=== PATIENT | male | born 1930 | race Caucasian/White ===

== ENCOUNTER → 2017-09-10 | Outpatient (CLI) | payer MEDICARE, OTHER | END | disposition home or self-care (01) | LOC: CFH 07:05 | PROVIDERS: ATTEND Nurse Practitioner Family | DX: M81.0 Age-related osteoporosis without current pathological fracture (principal); C61 Malignant neoplasm of prostate; Z79.818 Long term (current) use of other agents affecting estrogen receptors and estrogen levels | CPT/HCPCS: 77080 ==

== ENCOUNTER → 2018-01-20 | Outpatient (CLI) | payer MEDICARE, OTHER | END | disposition home or self-care (01) | LOC: CFH 06:54 | PROVIDERS: ATTEND Nurse Practitioner Family | DX: Z12.2 Encounter for screening for malignant neoplasm of respiratory organs (principal); J92.9 Pleural plaque without asbestos; I25.10 Atherosclerotic heart disease of native coronary artery without angina pectoris; Z87.891 Personal history of nicotine dependence | CPT/HCPCS: G0297 ==

== ENCOUNTER 2018-04-21 19:13 | Emergency (ER) | payer MEDICARE, OTHER ==
[~2018-04-21] VITALS: Ht 175.3 cm; Wt 77.5 kg
[2018-04-21 19:23] VITALS: BP 139/70
[2018-04-21] MEDS ORDERED: HIGH CHOL (19:30)
== END 2018-04-21 20:57 | disposition home or self-care (01) ==
LOC: ED 19:56
DX: M47.894 Other spondylosis, thoracic region (principal); E78.5 Hyperlipidemia, unspecified; Z87.891 Personal history of nicotine dependence
CPT/HCPCS: 72072; 99283

== ENCOUNTER 2019-08-15 17:05 | Inpatient (IN) | payer MEDICARE, OTHER ==
[~2019-08-15] VITALS: Ht 177.8 cm; Wt 72.9 kg
[~2019-08-15 17:05] MED LIST: HIGH CHOL
--- NOTE | 2019-08-15 17:05 | NUR ---
89 YR OLD MALE ARRIVED VIA EMS. PER REPORT PT WITH COUGH X2 WEEKS, PRODUCTIVE WITH GREEN PHLEGM. PT WITH SOB X2 DAYS, INCREASED SOB WITH EXERTION. PT ARRIVES WITH IV IN LAC, BS 140. PT WARM TO TOUCH. PLACED ON MONITORS, AFIB/FLUTTER PER MONITOR. AUTO BP AND PULSE OX IN PLACE.
--- NOTE | 2019-08-15 17:18 | NUR ---
DR PEARCE AT BEDSIDE TO EVAL PT
[2019-08-15] MEDS ORDERED: ACETAMINOPHEN 500 MG TABLET PO ONE (17:30)
[2019-08-15] MEDS ORDERED: SODIUM CHLORIDE 0.9% 1,000ML IVBOLUS ONE (17:30)
[2019-08-15] MEDS ORDERED: ACETAMINOPHEN 500 MG TABLET ONE (17:33)
--- NOTE | 2019-08-15 17:33 | NUR ---
REPORT TO AILIN CATES
--- NOTE | 2019-08-15 17:40 | NUR ---
PT MEDICATED ORDERED FOR FEVER. PT AO X 4. SKIN SLIGHTLY PALE, WARM AND DRY. PT RESP EVEN BUT WITH PURSED LIPS UPON EXPIRATION. DISCUSSED WITH ERMD LAW. PT ABLE TO SPEAK IN SHORT 4-5 WORD SENTENCES W/O DIFFICULTY. PT ON CONT BP, CARDIAC AND O2 MONITORS. CALL LIGHT WITHIN REACH. WILL CONT TO MONITOR PT.
[2019-08-15 17:43] LABS: MEAN CORPUSCULAR HGB CONC 33.8 g/dL (33.2-36.2); MEAN CORPUSCULAR VOLUME 97.6 fL (81-97); MEAN PLATELET VOLUME 6.4 fL (7.4-10.4); PLATELET COUNT 276 x10^3/uL (130-400); RED BLOOD COUNT 4.37 x10^6/uL (4.38-5.82); RED CELL DISTRIBUTION WIDTH 13.3 % (9.4-14.8)
[2019-08-15 18:00] LABS: ALANINE AMINOTRANSFERASE 19 U/L (12-78); ALBUMIN 3.2 g/dL (3.4-5.0); ANION GAP 10 mmol/L (5-15); CALCIUM 9.3 mg/dL (8.5-10.1); CHLORIDE 99 mmol/L (98-107)
[2019-08-15 18:02] LABS: ALKALINE PHOSPHATASE 126 U/L (45-117); BILIRUBIN,TOTAL 0.6 mg/dL (0.2-1.0); MD YES; TOTAL PROTEIN 7.8 g/dL (6.4-8.2)
[2019-08-15 18:05] LABS: BAND#(MANUAL) 1.82 x10^3/uL; BANDS%(MANUAL) 10 % (0-7); LYMPH#(MANUAL) 0.55 x10^3/uL (1-3.4); LYMPHS% (MANUAL) 3 % (22-44); MONOS#(MANUAL) 1.09 x10^3/uL (0.3-2.7); MONOS% (MANUAL) 6 % (2-9); SEG#(MANUAL) 14.74 x10^3/uL (1.8-6.8); SEGS% (MANUAL) 81 % (42-75)
[2019-08-15 18:06] LABS: <PLATELET ESTIMATE> ADEQUATE; <RBC MORPHOLOGY> NORMAL; LARGE PLATELETS 1+
[2019-08-15 18:12] LABS: RAPID INFLUENZA A Negative (Negative); RAPID INFLUENZA B Negative (Negative)
[2019-08-15 18:17] LABS: CREATINE KINASE, TOTAL 219 U/L (39-308)
[2019-08-15 18:21] LABS: C-REACTIVE PROTEIN, QUANT > 19.00 mg/dL (0.02-0.49)
[2019-08-15] MEDS ORDERED: CEFTRIAXONE PMX 1GM/50ML 50 ML ONE (18:49)
[2019-08-15] MEDS ORDERED: CEFTRIAXONE PMX 1GM/50ML 50 ML IV ONE (19:00)
[2019-08-15] MEDS ORDERED: AZITHROMYCIN 500 MG in SODIUM CHLORIDE 0.9% 250 ML IV ONE (19:00)
--- NOTE | 2019-08-15 20:19 | NUR ---
ADMITTING MD WHITE AT BEDSIDE FOR EVAL. PT AO X 4. CAPITAN GRANDE BAND. SKIN PWD. RESP EVEN AND UNLABORED. 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 ADMITTING MD WHITE AWARE THAT PT OCCAISIONALLY SHOWS A-FIB BUT NOT SUSTAINING AND ASYMPTOMATIC. NO ORDERS RECEIVED AT THIS TIME. CALL LIGHT WITHIN REACH.
[2019-08-15 20:20] LABS: TROPONIN I < 0.015 ng/mL (0.000-0.045)
--- NOTE | 2019-08-15 20:32 | NUR ---
ATTEMPTED TO CALL REPORT TO ICU. PT IN PT ROOM AND UNABLE TO COME TO PHONE AT THIS TIME.
[2019-08-15] MEDS ORDERED: SODIUM CHLORIDE 0.9% 1,000 ML IV SCH (20:33)
[2019-08-15] MEDS ORDERED: hydrALAzine 20 MG/ML, 1ML IVPush PRN (21:00)
[2019-08-15] MEDS ORDERED: ACETAMINOPHEN 325 MG TABLET PO PRN (21:00)
[2019-08-15] MEDS ORDERED: CEFTRIAXONE PMX 1GM/50ML 50 ML IV SCH (21:00)
[2019-08-15] MEDS ORDERED: ONDANSETRON 2MG/ML, 2ML IVPush PRN (21:00)
[2019-08-15] MEDS ORDERED: AZITHROMYCIN 500 MG in SODIUM CHLORIDE 0.9% 250 ML IV SCH (21:00)
[2019-08-15] MEDS ORDERED: morphine SULFATE 10 MG/ML, 1ML IVPush PRN (21:00)
[2019-08-15] MEDS ORDERED: DILTIAZEM 5 MG/ML, 5ML IVPush PRN (21:00)
[2019-08-15] MEDS ORDERED: TRAZODONE 50MG TABLET PO PRN (21:00)
[2019-08-15] MEDS ORDERED: "\\\"STATIN\\\"" PO (21:02)
--- NOTE | 2019-08-15 21:02 | NUR ---
REPORT TO GEAR HOBBER DESMOND. PT STATES HE TAKES TWO HOME MEDICATIONS "A STATIN AND SOMETHING ELSE". PT UNSURE WHICH STATIN AND WHAT THE OTHER MEDICATION IS FOR. LIVES ALONE AT HOME.
[2019-08-15 21:30] VITALS: BP 111/68
[2019-08-15] MEDS: ENOXAPARIN 60 MG/0.6 ML SQ SCH (21:54)
[2019-08-16 02:00] VITALS: BP 112/57
[2019-08-16 05:44] LABS: MEAN CORPUSCULAR HEMOGLOBIN 32.8 pg (27.5-34.5); MEAN CORPUSCULAR VOLUME 99.3 fL (81-97); MEAN PLATELET VOLUME 6.6 fL (7.4-10.4); PLATELET COUNT 236 x10^3/uL (130-400); RED BLOOD COUNT 4.05 x10^6/uL (4.38-5.82); RED CELL DISTRIBUTION WIDTH 13.1 % (9.4-14.8)
[2019-08-16 06:00] LABS: MD YES
[2019-08-16 06:02] LABS: BANDS%(MANUAL) 2 % (0-7); LYMPHS% (MANUAL) 2 % (22-44); MONOS#(MANUAL) 0.45 x10^3/uL (0.3-2.7); MONOS% (MANUAL) 3 % (2-9); SEG#(MANUAL) 13.95 x10^3/uL (1.8-6.8); SEGS% (MANUAL) 93 % (42-75)
[2019-08-16 06:03] LABS: <PLATELET ESTIMATE> ADEQUATE; <PLT MORPHOLOGY> NORMAL PLT MORPH; POLYCHROMASIA 1+
[2019-08-16 06:05] LABS: ANION GAP 9 mmol/L (5-15); CALCIUM 8.8 mg/dL (8.5-10.1); CHLORIDE 103 mmol/L (98-107)
[2019-08-16 06:07] LABS: CREATININE 0.85 mg/dL (0.7-1.3)
[2019-08-16] MEDS ORDERED: SODIUM PHOSPHATE 20 MMOL in SODIUM CHLORIDE 0.9% 500 ML IV ONE (07:30)
[2019-08-16] MEDS ORDERED: MAGNESIUM SULFATE PMX 2GM/50ML 50 ML IV ONE (07:30)
[2019-08-16] MEDS: ENOXAPARIN 60 MG/0.6 ML SQ SCH ×2 (08:00→20:52)
[2019-08-16 08:04] VITALS: BP 133/64
--- NOTE | 2019-08-16 10:17 | NUR ---
REC: Home Addendum: 08/16/19 at 1017 by Kayla DAVISON Amended: Links added.
[2019-08-16] MEDS: ZIPRASIDONE 20 MG INJ IM PRN ×2 (14:31→20:51)
[2019-08-16 14:34] VITALS: BP 161/77
[2019-08-16 16:29] LABS: MICROSCOPIC AUTO
[2019-08-16 19:10] VITALS: BP 143/65
[2019-08-16] MEDS ORDERED: AZITHROMYCIN 500 MG in SODIUM CHLORIDE 0.9% 250 ML IV SCH (20:00)
[2019-08-16] MEDS: CEFTRIAXONE PMX 1GM/50ML 50 ML IV SCH (20:09)
[2019-08-16 22:20] VITALS: BP 126/70
[2019-08-17 01:46] VITALS: BP 112/65
[2019-08-17] MEDS: ENOXAPARIN 60 MG/0.6 ML SQ SCH ×2 (07:40→21:00)
[2019-08-17 08:20] VITALS: BP 126/73
[2019-08-17 08:33] LABS: MEAN CORPUSCULAR HEMOGLOBIN 32.8 pg (27.5-34.5); MEAN CORPUSCULAR HGB CONC 33.4 g/dL (33.2-36.2); MEAN CORPUSCULAR VOLUME 98.2 fL (81-97); MEAN PLATELET VOLUME 6.3 fL (7.4-10.4); PLATELET COUNT 266 x10^3/uL (130-400); RED CELL DISTRIBUTION WIDTH 12.9 % (9.4-14.8)
[2019-08-17 08:44] LABS: ANION GAP 8 mmol/L (5-15); CALCIUM 8.1 mg/dL (8.5-10.1); CHLORIDE 101 mmol/L (98-107); CREATININE 0.57 mg/dL (0.7-1.3)
[2019-08-17 08:53] LABS: BASOPHILS # (AUTO) 0.02 x10^3/uL (0-0.1); BASOPHILS % (AUTO) 0 % (0-1); EOSINOPHILS # (AUTO) 0.01 x10^3/uL (0-0.4); EOSINOPHILS % (AUTO) 0 % (1-7); LYMPHOCYTES # (AUTO) 0.38 x10^3/uL (1-3.4); LYMPHOCYTES % (AUTO) 4 % (22-44); MD SCAN; MONOCYTES # (AUTO) 0.69 x10^3/uL (0.2-0.8); MONOCYTES % (AUTO) 7 % (2-9); NEUTROPHILS # (AUTO) 8.73 x10^3/uL (1.8-6.8); NEUTROPHILS % (AUTO) 89 % (42-75)
[2019-08-17] MEDS: DOXYCYCLINE 100 MG in DEXTROSE 5% 250 ML IV SCH ×2 (09:12→20:40)
[2019-08-17 12:38] VITALS: BP 129/71
[2019-08-17] MEDS ORDERED: POTASSIUM CHLORIDE 20 MEQ TAB.ER.PRT PO SCH (17:00)
[2019-08-17 18:29] VITALS: BP 125/79
[2019-08-17] MEDS: CEFTRIAXONE PMX 1GM/50ML 50 ML IV SCH (18:48)
[2019-08-17] MEDS ORDERED: LORazepam 0.5MG TABLET PO ONE (20:00)
[2019-08-18] VITALS: BP 103/62
[2019-08-18 06:18] LABS: MEAN CORPUSCULAR HEMOGLOBIN 32.9 pg (27.5-34.5); MEAN CORPUSCULAR HGB CONC 33.5 g/dL (33.2-36.2); MEAN CORPUSCULAR VOLUME 98.3 fL (81-97); MEAN PLATELET VOLUME 6.5 fL (7.4-10.4); PLATELET COUNT 274 x10^3/uL (130-400); RED BLOOD COUNT 3.72 x10^6/uL (4.38-5.82); RED CELL DISTRIBUTION WIDTH 13.6 % (9.4-14.8)
[2019-08-18 06:34] LABS: ALANINE AMINOTRANSFERASE 44 U/L (12-78); ALBUMIN 2.2 g/dL (3.4-5.0); ANION GAP 8 mmol/L (5-15); CALCIUM 8.1 mg/dL (8.5-10.1); CHLORIDE 100 mmol/L (98-107); CREATININE 0.57 mg/dL (0.7-1.3)
[2019-08-18 06:37] LABS: ALKALINE PHOSPHATASE 99 U/L (45-117); BILIRUBIN,TOTAL 0.5 mg/dL (0.2-1.0); TOTAL PROTEIN 5.9 g/dL (6.4-8.2)
[2019-08-18 06:38] LABS: BASOPHILS # (AUTO) 0.01 x10^3/uL (0-0.1); BASOPHILS % (AUTO) 0 % (0-1); EOSINOPHILS # (AUTO) 0.08 x10^3/uL (0-0.4); EOSINOPHILS % (AUTO) 1 % (1-7); LYMPHOCYTES # (AUTO) 0.79 x10^3/uL (1-3.4); LYMPHOCYTES % (AUTO) 10 % (22-44); MD SCAN; MONOCYTES # (AUTO) 0.57 x10^3/uL (0.2-0.8); MONOCYTES % (AUTO) 7 % (2-9); NEUTROPHILS # (AUTO) 6.71 x10^3/uL (1.8-6.8); NEUTROPHILS % (AUTO) 82 % (42-75)
[2019-08-18] MEDS ORDERED: MAGNESIUM SULFATE PMX 2GM/50ML 50 ML IV ONE (08:30)
[2019-08-18] MEDS: DOXYCYCLINE 100 MG in DEXTROSE 5% 250 ML IV SCH ×2 (09:40→21:47)
[2019-08-18] MEDS: MAGNESIUM OXIDE 400 MG TABLET PO SCH (10:55)
[2019-08-18] MEDS: POTASSIUM CHLORIDE 20 MEQ TAB.ER.PRT PO SCH ×3 (10:55→17:40)
[2019-08-18] MEDS: ENOXAPARIN 60 MG/0.6 ML SQ SCH (10:55)
[2019-08-18] MEDS: POTASSIUM ACID PHOSPHATE 500 MG TABLET.SOL PO SCH ×3 (10:56→23:09)
[2019-08-18 13:07] VITALS: BP 133/74
[2019-08-18] MEDS ORDERED: POTASSIUM CHLORIDE 20 MEQ TAB.ER.PRT ONE (16:59)
[2019-08-18 18:18] VITALS: BP 128/68
[2019-08-18] MEDS: CEFTRIAXONE PMX 1GM/50ML 50 ML IV SCH (19:15)
[2019-08-19 00:02] VITALS: BP 152/81
[2019-08-19] MEDS: ASPIRIN 325 MG TABLET PO SCH (06:31)
[2019-08-19] MEDS: POTASSIUM ACID PHOSPHATE 500 MG TABLET.SOL PO SCH (06:31)
[2019-08-19 06:37] VITALS: BP 140/57
[2019-08-19 08:34] LABS: BASOPHILS # (AUTO) 0.01 x10^3/uL (0-0.1); BASOPHILS % (AUTO) 0 % (0-1); EOSINOPHILS # (AUTO) 0.09 x10^3/uL (0-0.4); EOSINOPHILS % (AUTO) 1 % (1-7); LYMPHOCYTES # (AUTO) 1.01 x10^3/uL (1-3.4); LYMPHOCYTES % (AUTO) 13 % (22-44); MD NO; MEAN CORPUSCULAR HEMOGLOBIN 32.7 pg (27.5-34.5); MEAN CORPUSCULAR HGB CONC 33.7 g/dL (33.2-36.2); MEAN CORPUSCULAR VOLUME 97.3 fL (81-97); MEAN PLATELET VOLUME 6.2 fL (7.4-10.4); MONOCYTES # (AUTO) 0.77 x10^3/uL (0.2-0.8); MONOCYTES % (AUTO) 10 % (2-9); NEUTROPHILS # (AUTO) 6.04 x10^3/uL (1.8-6.8); NEUTROPHILS % (AUTO) 76 % (42-75); PLATELET COUNT 325 x10^3/uL (130-400); RED BLOOD COUNT 3.91 x10^6/uL (4.38-5.82); RED CELL DISTRIBUTION WIDTH 13.4 % (9.4-14.8)
[2019-08-19 08:43] LABS: ANION GAP 8 mmol/L (5-15); CALCIUM 8.3 mg/dL (8.5-10.1); CHLORIDE 100 mmol/L (98-107); CREATININE 0.54 mg/dL (0.7-1.3)
[2019-08-19] MEDS: DOXYCYCLINE 100 MG in DEXTROSE 5% 250 ML IV SCH ×2 (09:36→21:51)
[2019-08-19] MEDS: MAGNESIUM OXIDE 400 MG TABLET PO SCH (09:36)
[2019-08-19] MEDS: ENOXAPARIN 40 MG/0.4 ML SQ SCH (09:36)
[2019-08-19 12:38] VITALS: BP 151/81
[2019-08-19] MEDS ORDERED: MAGNESIUM SULFATE PMX 2GM/50ML 50 ML IV ONE (18:00)
[2019-08-19] MEDS: CEFTRIAXONE PMX 1GM/50ML 50 ML IV SCH (18:13)
[2019-08-20 00:12] VITALS: BP 130/66
[2019-08-20] MEDS: ASPIRIN 325 MG TABLET PO SCH (05:55)
[2019-08-20 07:22] VITALS: BP 134/70
[2019-08-20 07:41] LABS: BASOPHILS % (AUTO) 0 % (0-1); EOSINOPHILS # (AUTO) 0.14 x10^3/uL (0-0.4); EOSINOPHILS % (AUTO) 2 % (1-7); LYMPHOCYTES # (AUTO) 0.83 x10^3/uL (1-3.4); LYMPHOCYTES % (AUTO) 14 % (22-44); MD NO; MEAN CORPUSCULAR HEMOGLOBIN 32.9 pg (27.5-34.5); MEAN CORPUSCULAR HGB CONC 33.6 g/dL (33.2-36.2); MEAN PLATELET VOLUME 6.1 fL (7.4-10.4); MONOCYTES # (AUTO) 0.75 x10^3/uL (0.2-0.8); MONOCYTES % (AUTO) 12 % (2-9); NEUTROPHILS # (AUTO) 4.46 x10^3/uL (1.8-6.8); NEUTROPHILS % (AUTO) 72 % (42-75); PLATELET COUNT 337 x10^3/uL (130-400); RED BLOOD COUNT 3.76 x10^6/uL (4.38-5.82); RED CELL DISTRIBUTION WIDTH 13.1 % (9.4-14.8)
[2019-08-20 07:48] LABS: ANION GAP 6 mmol/L (5-15); CHLORIDE 94 mmol/L (98-107)
[2019-08-20 07:49] LABS: CREATININE 0.45 mg/dL (0.7-1.3)
[2019-08-20] MEDS: MAGNESIUM OXIDE 400 MG TABLET PO SCH (08:34)
[2019-08-20] MEDS: DOXYCYCLINE 100 MG in DEXTROSE 5% 250 ML IV SCH ×2 (08:35→21:30)
[2019-08-20] MEDS: ENOXAPARIN 40 MG/0.4 ML SQ SCH (08:35)
--- NOTE | 2019-08-20 12:55 | NUR ---
REC: SNF Addendum: 08/20/19 at 1255 by Kayla DAVISON Amended: Links added.
[2019-08-20 13:51] VITALS: BP 135/72
[2019-08-20] MEDS ORDERED: MAGNESIUM SULFATE PMX 2GM/50ML 50 ML IV ONE (16:30)
[2019-08-20] MEDS: POTASSIUM CHLORIDE 20 MEQ TAB.ER.PRT PO SCH ×2 (16:58→20:36)
[2019-08-20 18:25] VITALS: BP 133/65
[2019-08-20] MEDS: CEFTRIAXONE PMX 1GM/50ML 50 ML IV SCH (20:36)
[2019-08-21 05:36] LABS: BASOPHILS # (AUTO) 0.01 x10^3/uL (0-0.1); BASOPHILS % (AUTO) 0 % (0-1); EOSINOPHILS # (AUTO) 0.18 x10^3/uL (0-0.4); EOSINOPHILS % (AUTO) 3 % (1-7); LYMPHOCYTES # (AUTO) 1.08 x10^3/uL (1-3.4); LYMPHOCYTES % (AUTO) 17 % (22-44); MD NO; MEAN CORPUSCULAR HEMOGLOBIN 32.4 pg (27.5-34.5); MEAN CORPUSCULAR HGB CONC 33.6 g/dL (33.2-36.2); MEAN CORPUSCULAR VOLUME 96.2 fL (81-97); MEAN PLATELET VOLUME 6.1 fL (7.4-10.4); MONOCYTES # (AUTO) 0.69 x10^3/uL (0.2-0.8); MONOCYTES % (AUTO) 11 % (2-9); NEUTROPHILS # (AUTO) 4.28 x10^3/uL (1.8-6.8); NEUTROPHILS % (AUTO) 69 % (42-75); PLATELET COUNT 379 x10^3/uL (130-400); RED BLOOD COUNT 3.79 x10^6/uL (4.38-5.82); RED CELL DISTRIBUTION WIDTH 13.1 % (9.4-14.8)
[2019-08-21] MEDS: ASPIRIN 325 MG TABLET PO SCH (05:36)
[2019-08-21 05:47] LABS: ALANINE AMINOTRANSFERASE 46 U/L (12-78); ALBUMIN 2.4 g/dL (3.4-5.0); ANION GAP 9 mmol/L (5-15); CHLORIDE 98 mmol/L (98-107); CREATININE 0.47 mg/dL (0.7-1.3)
[2019-08-21 06:14] LABS: ALKALINE PHOSPHATASE 104 U/L (45-117); BILIRUBIN,TOTAL 0.7 mg/dL (0.2-1.0); TOTAL PROTEIN 6.1 g/dL (6.4-8.2)
[2019-08-21 06:36] VITALS: BP 144/77
[2019-08-21] MEDS: MAGNESIUM OXIDE 400 MG TABLET PO SCH (09:05)
[2019-08-21] MEDS: POTASSIUM CHLORIDE 20 MEQ TAB.ER.PRT PO SCH ×4 (09:05→20:21)
[2019-08-21] MEDS: ENOXAPARIN 40 MG/0.4 ML SQ SCH (09:05)
[2019-08-21] MEDS: DOXYCYCLINE 100 MG in DEXTROSE 5% 250 ML IV SCH (09:05)
[2019-08-21 13:08] VITALS: BP 117/64
[2019-08-21 18:39] VITALS: BP 148/67
[2019-08-21] MEDS ORDERED: CEFTRIAXONE PMX 1GM/50ML 50 ML IV SCH (19:00)
[2019-08-21] MEDS ORDERED: DOXYCYCLINE 100 MG in DEXTROSE 5% 250 ML IV SCH (20:00)
[2019-08-22 01:48] VITALS: BP 113/66
[2019-08-22 05:29] LABS: BASOPHILS # (AUTO) 0.09 x10^3/uL (0-0.1); BASOPHILS % (AUTO) 1 % (0-1); EOSINOPHILS # (AUTO) 0.16 x10^3/uL (0-0.4); EOSINOPHILS % (AUTO) 2 % (1-7); LYMPHOCYTES # (AUTO) 1.16 x10^3/uL (1-3.4); LYMPHOCYTES % (AUTO) 16 % (22-44); MD NO; MEAN CORPUSCULAR HEMOGLOBIN 32.6 pg (27.5-34.5); MEAN CORPUSCULAR HGB CONC 33.3 g/dL (33.2-36.2); MONOCYTES # (AUTO) 0.85 x10^3/uL (0.2-0.8); MONOCYTES % (AUTO) 12 % (2-9); NEUTROPHILS # (AUTO) 4.86 x10^3/uL (1.8-6.8); NEUTROPHILS % (AUTO) 68 % (42-75); PLATELET COUNT 456 x10^3/uL (130-400); RED BLOOD COUNT 3.87 x10^6/uL (4.38-5.82); RED CELL DISTRIBUTION WIDTH 13.4 % (9.4-14.8)
[2019-08-22 05:35] LABS: ANION GAP 9 mmol/L (5-15); CALCIUM 8.4 mg/dL (8.5-10.1); CHLORIDE 104 mmol/L (98-107); CREATININE 0.59 mg/dL (0.7-1.3)
[2019-08-22] MEDS: ASPIRIN 325 MG TABLET PO SCH (06:03)
[2019-08-22 06:56] VITALS: BP 154/74
[2019-08-22] MEDS: MAGNESIUM OXIDE 400 MG TABLET PO SCH (09:09)
[2019-08-22] MEDS: ENOXAPARIN 40 MG/0.4 ML SQ SCH (09:09)
[2019-08-22] MEDS: POTASSIUM CHLORIDE 20 MEQ TAB.ER.PRT PO SCH (09:09)
[2019-08-22 13:57] VITALS: BP 128/72
[2019-08-22] MEDS ORDERED: ACET325T26 PO (15:11)
[2019-08-22] MEDS ORDERED: ASPI325T17 PO (15:11)
[2019-08-22] MEDS ORDERED: MAGN400T50 PO (15:11)
== END 2019-08-22 18:23 | DRG 871 ==
LOC: ED 17:50 → EDIP 18:44 → ICU 21:05 → 3N 08-16 19:27
PROVIDERS: ADMIT Family Medicine; ATTEND Internal Medicine
PROC: 0T9B70Z Drainage of Bladder with Drainage Device, Via Natural or Artificial Opening (ICD-10-PCS; principal; 2019-08-16)
DX: A41.89 Other specified sepsis (principal); J96.91 Respiratory failure, unspecified with hypoxia; G93.41 Metabolic encephalopathy; J18.9 Pneumonia, unspecified organism; E87.1 Hypo-osmolality and hyponatremia; D68.69 Other thrombophilia; E87.6 Hypokalemia; E83.42 Hypomagnesemia; E83.39 Other disorders of phosphorus metabolism; D63.8 Anemia in other chronic diseases classified elsewhere; F03.90 Unspecified dementia, unspecified severity, without behavioral disturbance, psychotic disturbance, mood disturbance, and anxiety; I48.91 Unspecified atrial fibrillation; R65.20 Severe sepsis without septic shock; E78.5 Hyperlipidemia, unspecified; N40.0 Benign prostatic hyperplasia without lower urinary tract symptoms; Z87.891 Personal history of nicotine dependence; Z90.49 Acquired absence of other specified parts of digestive tract; Z03.818 Encounter for observation for suspected exposure to other biological agents ruled out; R13.10 Dysphagia, unspecified
CPT/HCPCS: 36415; 36600; 70450; 70551; 71045; 80048; 80053; 81001; 82550; 82607; 82803; 83605; 83615; 83735; 84100; 84145; 84443; 84484; 85025; 86140; 87040; 87081; 87400; 93005; 93306; 96361; 96365; 96367; G0378; J0456; J0696; J1650; J3486; J7060; 92522-GN; J3475; J7030; J7040; J7050